=== PATIENT | female | born 1940 | race Caucasian/White ===

== ENCOUNTER 2019-05-21 08:27 | Day surgery (SDC) | payer MEDICARE, BC ==
[2019-05-18 09:47] VITALS: BMI 26.4
--- NOTE | 2019-05-20 20:29 | P.GSHP ---
History of Present Illness H&P Date: 05/21/19 CHIEF COMPLAINT: GERD HISTORY OF PRESENT ILLNESS: The patient is a 79-year-old female who presents reports gastroesophageal reflux disease. Upper endoscopy was offered for further evaluation and management. PAST MEDICAL HISTORY: Please see list. PAST SURGICAL HISTORY: Please see list. MEDICATIONS: Please see list. ALLERGIES: Please see list. SOCIAL HISTORY: No illicit drug use FAMILY HISTORY: No reports of Crohn disease or ulcerative colitis. REVIEW OF ORGAN SYSTEMS: CONSTITUTIONAL: No reports of fevers or chills. GI: Denies any blood in stools or constipation. PHYSICAL EXAM: VITAL SIGNS: Stable GENERAL: Well-developed and pleasant in no acute distress. HEENT: No scleral icterus. Extraocular movements grossly intact. Moist buccal mucosa. NECK: Supple without lymphadenopathy. CHEST: Unlabored respirations. Equal bilateral excursions. CARDIOVASCULAR: Regular rate and rhythm. Distal 2+ pulses. ABDOMEN: Soft, nondistended. MUSCULOSKELETAL: No clubbing, cyanosis, or edema. ASSESSMENT: 1. Gastroesophageal reflux disease PLAN: 1. Recommend proceeding with an upper endoscopy Past Medical History Past Medical History: Coronary Artery Disease (CAD), Hyperlipidemia, Sleep Apnea/CPAP/BIPAP Additional Past Medical History / Comment(s): Paralized L vocal cord, dysphagia recently, uses CPAP, varicose veins History of Any Multi-Drug Resistant Organisms: None Reported Past Surgical History: Appendectomy, Bladder Surgery, Cardiac Ablation, Heart Catheterization With Stent, Hysterectomy Additional Past Surgical History / Comment(s): varicose veins, recto/cystocele repair Past Anesthesia/Blood Transfusion Reactions: Previous Problems w/ Anesthesia, Motion Sickness, Postoperative Nausea & Vomiting (PONV) Additional Past Anesthesia/Blood Transfusion Reaction / Comment(s): States she gets a high fever and Inc. BP. Denies being told she has MH. Date of Last Stent Placement:: 2008 Type of Cardiac Device: Permanent Pacemaker Device Placement Date:: 2006 Smoking Status: Never smoker - Past Family History Mother Family Medical History: No Reported History Medications and Allergies Home Medications Medication Instructions Recorded Confirmed Type Furosemide [Lasix] 20 mg PO DAILY 05/18/19 05/18/19 History Allergies Allergy/AdvReac Type Severity Reaction Status Date / Time aspirin Allergy Anaphylaxis Verified 05/18/19 09:29 atorvastatin [From Lipitor] Allergy Anaphylaxis Verified 05/18/19 09:29 clopidogrel [From Plavix] Allergy Anaphylaxis Verified 05/18/19 09:29 diltiazem [From Cardizem] Allergy Anaphylaxis Verified 05/18/19 09:29 disopyramide [From Norpace] Allergy Anaphylaxis Verified 05/18/19 09:29 enalapril Allergy Anaphylaxis Verified 05/18/19 09:29 ezetimibe [From Zetia] Allergy Anaphylaxis Verified 05/18/19 09:29 levofloxacin [From Levaquin] Allergy Anaphylaxis Verified 05/18/19 09:29 metoprolol [From Toprol XL] Allergy Anaphylaxis Verified 05/18/19 09:29 onion Allergy Anaphylaxis Verified 05/18/19 09:29 Penicillins Allergy Anaphylaxis Verified 05/18/19 09:29 procainamide [From Procan SR] Allergy Anaphylaxis Verified 05/18/19 09:29 propafenone [From Rythmol] Allergy Anaphylaxis Verified 05/18/19 09:29 quinagolide Allergy Anaphylaxis Verified 05/18/19 09:29 sotalol [From Betapace] Allergy Anaphylaxis Verified 05/18/19 09:29 warfarin [From Coumadin] Allergy Anaphylaxis Verified 05/18/19 09:29
[~2019-05-21 08:27] MED LIST: LACTATED RINGERS 1,000 ML IV SCH; LIDOCAINE 1% 20 ML VIAL (10MG/ML) FOR IV START INTRADERMA PRN
[2019-05-21 09:01] VITALS: TEMP 97.5
[2019-05-21] MEDS ORDERED: LABETALOL 5 MG/ML VIAL MDV ONE (09:34)
[2019-05-21] MEDS ORDERED: LIDOCAINE 1% INJ 10MG/ML (20 ML MDV) ONE (09:34)
[2019-05-21] MEDS ORDERED: PROPOFOL 10 MG/ML 20 ML VIAL IV ONE (09:34)
--- NOTE | 2019-05-21 09:53 | P.PCN ---
Date of Procedure: 05/21/19 Description of Procedure: PREOPERATIVE DIAGNOSIS: Gastroesophageal reflux disease. POSTOPERATIVE DIAGNOSIS: Gastritis. Gastroesophageal reflux disease. Diaphragmatic hiatal hernia OPERATION: Esophagogastroduodenoscopy with biopsies along antrum. SURGEON: Adwoa Charlton MD ANESTHESIA: MAC. INDICATIONS: The patient is a 79-year-old female who presents with a history of reflux disease. Benefits and risks of the procedure were described. Informed consent was obtained. DESCRIPTION: The patient was brought into the endoscopy suite and laid in the left lateral decubitus position. An pediatric Olympus gastroscope was passed along the posterior oropharynx down to the distal esophagus where the squamocolumnar junction was encountered at 38 cm from the incisors. The stomach was entered and no bile reflux was found. Additional findings are listed below. Biopsies with cold forceps were obtained of the antrum. The first through third portion of the duodenum was examined and unremarkable. The pylorus was initially hypertensive however after advancing the scope, the pylorus had relax. Retroflexion of the scope confirmed Hill grade 2 lower esophageal valve. The squamocolumnar junction demonstrated LA grade B erosive esophagitis. The stomach was desufflated. The patient tolerated the procedure well. FINDINGS: Squamocolumnar junction 38 cm from the incisors. Diaphragmatic hiatus at 40 cm. Hiatal hernia, 2 cm Hill grade 2 lower esophageal valve. LA grade B erosive esophagitis. No active duodenitis. Chronic gastritis Hypertensive pylorus RECOMMENDATIONS: Upper endoscopy as needed. Plan - Discharge Summary Discharge Rx Participant: No New Discharge Prescriptions: No Action Furosemide [Lasix] 20 mg PO DAILY Discharge Medication List Furosemide [Lasix] 20 mg PO DAILY 05/18/19 [History] Follow up Appointment(s)/Referral(s): Adwoa Charlton MD [STAFF PHYSICIAN] - 06/05/19 Patient Instructions/Handouts: Gastroesophageal Reflux Disease (DC) Discharge Disposition: HOME SELF-CARE
[2019-05-21 09:59] VITALS: PULSE 60
[2019-05-21 10:10] VITALS: BP 167/79; RESP 17
== END 2019-05-21 10:28 | disposition home or self-care (01) ==
LOC: ORWHC2ENDO 08:27
PROVIDERS: ATTEND Surgery Plastic and Reconstructive Surgery
DX: K21.0 Gastro-esophageal reflux disease with esophagitis (principal); K29.50 Unspecified chronic gastritis without bleeding; K44.9 Diaphragmatic hernia without obstruction or gangrene; I25.10 Atherosclerotic heart disease of native coronary artery without angina pectoris; E78.5 Hyperlipidemia, unspecified; Z95.5 Presence of coronary angioplasty implant and graft; Z95.0 Presence of cardiac pacemaker; Z88.6 Allergy status to analgesic agent; Z88.1 Allergy status to other antibiotic agents; Z88.8 Allergy status to other drugs, medicaments and biological substances; G47.33 Obstructive sleep apnea (adult) (pediatric); J38.01 Paralysis of vocal cords and larynx, unilateral
CPT/HCPCS: 88305; 43239; J2001; J2704

== ENCOUNTER 2022-08-16 06:27 | Day surgery (SDC) | payer MEDICARE, BC ==
[2022-08-10 16:23] VITALS: BMI 24.7
[~2022-08-16 06:27] MED LIST changes: +LIDOCAINE 1% (10MG/ML) FOR IV START INTRADERMA PRN; -LIDOCAINE 1% 20 ML VIAL (10MG/ML) FOR IV START INTRADERMA PRN
[2022-08-16 07:15] VITALS: RESP 16; TEMP 97
--- NOTE | 2022-08-16 07:25 | P.GSHP ---
History of Present Illness H&P Date: 08/16/22 CHIEF COMPLAINT: GERD HISTORY OF PRESENT ILLNESS: The patient is a 82-year-old female who presents reports gastroesophageal reflux disease. Upper endoscopy was offered for further evaluation and management. PAST MEDICAL HISTORY: Please see list. PAST SURGICAL HISTORY: Please see list. MEDICATIONS: Please see list. ALLERGIES: Please see list. SOCIAL HISTORY: No illicit drug use FAMILY HISTORY: No reports of Crohn disease or ulcerative colitis. REVIEW OF ORGAN SYSTEMS: CONSTITUTIONAL: No reports of fevers or chills. GI: Denies any blood in stools or constipation. PHYSICAL EXAM: VITAL SIGNS: Stable GENERAL: Well-developed and pleasant in no acute distress. HEENT: No scleral icterus. Extraocular movements grossly intact. Moist buccal mucosa. NECK: Supple without lymphadenopathy. CHEST: Unlabored respirations. Equal bilateral excursions. CARDIOVASCULAR: Regular rate and rhythm. Distal 2+ pulses. ABDOMEN: Soft, nondistended. MUSCULOSKELETAL: No clubbing, cyanosis, or edema. ASSESSMENT: 1. Gastroesophageal reflux disease PLAN: 1. Recommend proceeding with an upper endoscopy Past Medical History Past Medical History: Coronary Artery Disease (CAD), Hyperlipidemia, Hypertension, Sleep Apnea/CPAP/BIPAP, Thyroid Disorder Additional Past Medical History / Comment(s): In ER recently for severe dizziness, states prescribed Meclizine and scheduled to have Pacemaker check with cardilogist 09/16/22. Paralized left vocal cord, dysphagia, CPAP - not using currently, varicose veins, no current thyroid problems. History of Any Multi-Drug Resistant Organisms: None Reported Past Surgical History: Appendectomy, Bladder Surgery, Cardiac Ablation, Heart Catheterization With Stent, Hysterectomy, Pacemaker Additional Past Surgical History / Comment(s): Varicose veins, rectocele/cystocele repair, bladder suspension, 3 cardiac stents, bilateral catatact surgery, 2 pacemaker replacements. Past Anesthesia/Blood Transfusion Reactions: Previous Problems w/ Anesthesia, Motion Sickness, Postoperative Nausea & Vomiting (PONV) Additional Past Anesthesia/Blood Transfusion Reaction / Comment(s): States she gets a high fever and increased BP. Denies being told she has MH. "High pain tolerance, doesn't want a lot of anesthesia, don't do well with it". Date of Last Stent Placement:: 2008 Type of Cardiac Device: Unknown Device Placement Date:: Unknown Past Psychological History: No Psychological Hx Reported Smoking Status: Never smoker Past Alcohol Use History: None Reported Past Drug Use History: None Reported - Past Family History Mother Family Medical History: No Reported History Medications and Allergies Home Medications Medication Instructions Recorded Confirmed Type Meclizine [Antivert] 12.5 mg PO Q6H PRN 08/10/22 08/16/22 History NIFEdipine [Adalat CC] 30 mg PO QAM 08/10/22 08/16/22 History Allergies Allergy/AdvReac Type Severity Reaction Status Date / Time aspirin Allergy Anaphylaxis Verified 08/10/22 16:05 atorvastatin [From Lipitor] Allergy Anaphylaxis Verified 08/10/22 16:05 clopidogrel [From Plavix] Allergy Anaphylaxis Verified 08/10/22 16:05 diltiazem [From Cardizem] Allergy Anaphylaxis Verified 08/10/22 16:05 disopyramide [From Norpace] Allergy Anaphylaxis Verified 08/10/22 16:05 enalapril Allergy Anaphylaxis Verified 08/10/22 16:05 ezetimibe [From Zetia] Allergy Anaphylaxis Verified 08/10/22 16:05 latex Allergy Rash/Hives Verified 08/10/22 16:05 levofloxacin [From Levaquin] Allergy Anaphylaxis Verified 08/10/22 16:05 metoprolol [From Toprol XL] Allergy Anaphylaxis Verified 08/10/22 16:05 onion Allergy Anaphylaxis Verified 08/10/22 16:05 Penicillins Allergy Anaphylaxis Verified 08/10/22 16:05 procainamide [From Procan SR] Allergy Anaphylaxis Verified 08/10/22 16:05 propafenone [From Rythmol] Allergy Anaphylaxis Verified 08/10/22 16:05 quinagolide Allergy Anaphylaxis Verified 08/10/22 16:05 silicone Allergy Rash/Hives Verified 08/10/22 16:05 sotalol [From Betapace] Allergy Anaphylaxis Verified 08/10/22 16:05 warfarin [From Coumadin] Allergy Anaphylaxis Verified 08/10/22 16:05 Surgical - Exam Vital Signs Temp Pulse Resp BP Pulse Ox 97.0 F L 61 16 152/69 98 08/16/22 07:08 08/16/22 07:08 08/16/22 07:08 08/16/22 07:08 08/16/22 07:08
[2022-08-16] MEDS ORDERED: PROPOFOL 10 MG/ML 20 ML VIAL IV ONE (07:31)
[2022-08-16] MEDS ORDERED: LIDOCAINE 2% INJ 20 MG/ML (2 ML VIAL) ONE (07:31)
--- NOTE | 2022-08-16 07:45 | P.PCN ---
Date of Procedure: 08/16/22 Description of Procedure: PREOPERATIVE DIAGNOSIS: Gastroesophageal reflux disease. Dysphagia History of esophageal diverticulum POSTOPERATIVE DIAGNOSIS: Gastroesophageal reflux disease. Dysphagia History of esophageal diverticulum Gastric polyp Gastritis. Diaphragmatic hiatal hernia OPERATION: Esophagogastroduodenoscopy with biopsies along antrum and duodenum SURGEON: Adwoa Charlton MD ANESTHESIA: MAC. INDICATIONS: The patient is a 82-year-old female who presents with reflux disease. Benefits and risks of the procedure were described. Informed consent was obtained. DESCRIPTION: The patient was brought into the endoscopy suite and laid in the left lateral decubitus position. An Olympus gastroscope was passed along the posterior oropharynx down to the distal esophagus where the squamocolumnar junction was encountered at 36 cm from the incisors. The stomach was entered and no bile reflux was found. Additional findings are listed below. Biopsies with cold forceps were obtained of the antrum. The first through third portion of the duodenum was examined. Retroflexion of the scope confirmed Hill grade 3 lower esophageal valve. The squamocolumnar junction demonstrated LA grade B erosive esophagitis. The stomach was desufflated. The patient tolerated the procedure well. FINDINGS: Squamocolumnar junction 36 cm from the incisors. Diaphragmatic hiatus at 37 cm. Hiatal hernia, 1 cm Hill grade 4 lower esophageal valve. LA grade B erosive esophagitis. Gastric polyps Biopsy obtained of the duodenum Chronic gastritis RECOMMENDATIONS: Upper endoscopy as needed. Plan - Discharge Summary Discharge Rx Participant: No New Discharge Prescriptions: Continue Meclizine [Antivert] 12.5 mg PO Q6H PRN PRN Reason: Dizziness NIFEdipine [Adalat CC] 30 mg PO QAM Discharge Medication List Meclizine [Antivert] 12.5 mg PO Q6H PRN 08/10/22 [History] NIFEdipine [Adalat CC] 30 mg PO QAM 08/10/22 [History] Follow up Appointment(s)/Referral(s): Adwoa Charlton MD [STAFF PHYSICIAN] - 09/07/22 Patient Instructions/Handouts: Hiatal Hernia (DC), Gastritis (DC) Discharge Disposition: HOME SELF-CARE
[2022-08-16 07:48] VITALS: PULSE 60
[2022-08-16 08:09] VITALS: BP 106/64
== END 2022-08-16 08:27 | disposition home or self-care (01) ==
LOC: ORWHC2ENDO 06:27
PROVIDERS: ATTEND Surgery Plastic and Reconstructive Surgery
DX: K29.50 Unspecified chronic gastritis without bleeding (principal); K31.89 Other diseases of stomach and duodenum; K31.A11 Gastric intestinal metaplasia without dysplasia, involving the antrum; K21.00 Gastro-esophageal reflux disease with esophagitis, without bleeding; K44.9 Diaphragmatic hernia without obstruction or gangrene; K31.7 Polyp of stomach and duodenum; R13.10 Dysphagia, unspecified; I25.10 Atherosclerotic heart disease of native coronary artery without angina pectoris; E78.5 Hyperlipidemia, unspecified; I10 Essential (primary) hypertension; G47.33 Obstructive sleep apnea (adult) (pediatric); E07.9 Disorder of thyroid, unspecified; K91.0 Vomiting following gastrointestinal surgery; Z99.89 Dependence on other enabling machines and devices; Z90.49 Acquired absence of other specified parts of digestive tract; Z95.5 Presence of coronary angioplasty implant and graft; Z95.0 Presence of cardiac pacemaker; Z90.710 Acquired absence of both cervix and uterus; Z88.6 Allergy status to analgesic agent; Z88.1 Allergy status to other antibiotic agents; Z91.040 Latex allergy status; Z88.0 Allergy status to penicillin; Z88.8 Allergy status to other drugs, medicaments and biological substances; Z79.899 Other long term (current) drug therapy
CPT/HCPCS: 43239; 88305; 74220; J2704; J2001

== ENCOUNTER → 2022-08-16 | Outpatient (CLI) | payer MEDICARE, BC ==
--- NOTE | 2022-08-16 11:54 | FL ---
EXAMINATION TYPE: FL barium swallow DATE OF EXAM: 08/16/2022 11:35 AM COMPARISON: None CLINICAL INDICATION:Female, 82 years old with history of R13.10 dysphagia TECHNIQUE: The procedure was explained and patient history elicited. All patient questions were ans wered prior to start of procedure. Multiple spot fluoroscopic images of the esophagus were obtained a fter the oral ingestion of effervescent crystals and liquid barium as the contrast agent. Fluoroscopic time: 44 seconds Radiographs taken: 176 FINDINGS: The esophageal mucosa is smooth without evidence of focal stricture, ulceration, or abnormal outpouch ing. No gastroesophageal reflux disease was identified. Delayed emptying of the esophagus with terti alexandra contractions. Small hiatal hernia is present. Cardiac conduction leads are present. IMPRESSION: 1. Esophageal dysmotility with delayed emptying of the distal esophagus or swallowing prone. 2. Small hiatal hernia.
== END | disposition home or self-care (01) ==
LOC: RADUSWWP 09:53
PROVIDERS: ATTEND Surgery Plastic and Reconstructive Surgery
DX: K44.9 Diaphragmatic hernia without obstruction or gangrene (principal); K22.4 Dyskinesia of esophagus; R13.10 Dysphagia, unspecified
CPT/HCPCS: 74220